=== PATIENT | female | born 1960 | race Two or more races ===

== ENCOUNTER 2025-09-13 18:20 | Emergency (ER) | payer OTHER, SELFPAY ==
[2025-09-13 18:50] VITALS: BP 146/80; PULSE 79; RESP 18; TEMP 36.6; O2SAT 100; BMI 23.6
--- NOTE | 2025-09-13 18:56 | ED_ITS ---
HPI - General Adult General Chief complaint: Wound/Laceration Stated complaint: cut in finger, bleeding Time Seen by Provider: 09/13/25 23:22 History of Present Illness ED Provider: Thor OLIVA narrative: The patient is a 65-year-old female who cut the tip of her 3rd finger with a knife while cooking in her kitchen. There was bleeding and she came to the emergency room. No other injuries. She says that she has a tetanus shot earlier this month. Related Data Allergies Allergy/AdvReac Type Severity Reaction Status Date / Time No Known Allergies Allergy Verified 09/13/25 18:52 Review of Systems Review of Systems: Yes all other systems are reviewed and are negative PMFSH Social History Social History Smoked in Last 30 Days: No Use of substances other than those prescribed or required for medical reasons: No Advance Directives: No Advance Directives Information Provided: Yes Do you have a plan to hurt others: No Plan Physical Exam ED Vital Signs: Vital Signs - 24 hr 09/13/25 18:50 09/13/25 23:23 09/14/25 01:21 Temperature 98 F 97.7 F 97.8 F Pulse Rate 79 86 71 Respiratory Rate 18 16 16 Blood Pressure 146/80 H 148/80 H 148/85 H Pulse Oximetry 100 99 98 Oxygen Delivery Method Room Air Room Air BMI result Body Mass Index 23.6 Const Other: The patient is a very small, thin 65-year-old woman who was awake and alert and seems very anxious. Orientation/consciousness: patient oriented x3 HENMT Other: The face is symmetrical. ?Mucous membranes moist. Eyes General: appearance normal, both eyes and all related structures Neck Neck: Yes normal visual inspection and Yes full ROM Resp Effort & Inspection: normal respiratory effort Skin Other: The patient has a laceration to the tip of the left index finger. The laceration is on the pad of the finger and does not involve the fingernail. The laceration is a flap like laceration which is essentially very close to having been an avulsion injury. There is a small base of the flap. The base is proximal to the flap. There was not much thickness to the flap. The flap is essentially 3/4 of a [place]. The total length of the skin laceration is about 2.5 cm. Neuro General: patient oriented x3, gait normal, tone normal, moves all extremities and CN's II-XI intact bilaterally Extrem Other: There is a flap-like laceration to the skin of the left middle finger at the pad of the finger. The fingernail is intact. No deformity. Normal function of the finger Course Course Course Narrative: RME; 65 yold female presents to the ED for left 2 and 3rd finger laceration that occurred at work in the kitchen. Patient middle finger laceration needs repair. Medications Administered Discontinued Medications Generic Name Dose Route Start Last Admin Trade Name Kip PRN Reason Stop Dose Admin Lidocaine HCl 10 ml 09/13/25 23:34 09/14/25 00:05 Lidocaine Hcl 1 % Mpf 5 Ml Vial INFILTRATI 09/13/25 23:35 10 ml ONCE ONE Administration Procedures Laceration Laceration 1: Site: hand (Tip of left middle finger) Side (If applicable): left Size (cm): 2.5 Description: flap Depth: simple, single layer Local Anesthetic: lidocaine 1% (Placed at the base of the finger under sterile conditions as a digital block) Amount of anesthesia used (mL): 6 Pre-repair: wound explored and irrigated extensively Skin layer closed with: nylon Size (cm): 5-0 Number of sutures: 6 Technique: simple, interrupted Medical Decision Making Medical Decision Making MDM Narrative: The patient has a flap-like laceration at the pad of the left index finger. She is up-to-date on tetanus. The patient was given a digital block. The wound was thoroughly irrigated and then closed with 6 simple interrupted stitches using nylon. The viability of the flap may be somewhat tenuous as the flap is very thin and the base is narrow compared to the size of the flap. Nevertheless it will function at least as a biological dressing. Wound care instructions were reviewed with the patient. She should get her stitches out in about 8-10 days. Discharge Plan Discharge Clinical Impression: Laceration of left middle finger Patient Disposition: Home, Self-Care Instructions: Laceration (ED) Additional Instructions: Keep the current dressing on the finger until Saturday. You may remove the dressing on Saturday and replace it with a Band-Aid. Keep the hand elevated to reduce swelling. You may apply a very small amount of antibiotic ointment to the wound with Band- Aid changes for 2 days. After 2 days you should stop the antibiotic ointment. Please call your regular doctor's office in the morning for an appointment next Saturday or Saturday for suture removal. The wound may get wet in the shower. Do not scrub or rub the stitches. Return to the emergency department if or other complication. Referrals: [facility] [Provider Group, Family Practice] Interventions: ED Discharge Assessment Last Done: 09/14/25 01:35 Discharge Date/Time: 09/14/25 01:36 Print Language: Azeri
[2025-09-13 23:23] VITALS: BP 148/80; PULSE 86; RESP 16; TEMP 36.5; O2SAT 99
--- OUTSIDE RECORDS SUMMARY | 2025-09-13 23:36 | XMS_ITS | Clinical Summary ---
Author Organization [facility] ity Address [address] [place] [address] Care Team Providers Care Scowman Name Role Phone Unavailable Primary Care Provider Unavailabl e Social History Tobacco Use Types Packs/Day Years Used Date Smoking Tobacco: Never Assessed Comments Unknown Sex and Gender Information Value Date Recorded Sex Assigned at Not on file Legal Sex Female 6:16 PM EST Gender Identity Not on file Sexual Orientation Not on file Plan of Treatment Health Maintenance Due Date Last Done Comments Breast Cancer Screening 1960 DTaP,Tdap,and Td Vaccines (1 - Tdap) 1978 Pneumococcal Vaccine: 50+ Ye ars (1 of 1 - PCV) 2009 Zoster Vaccines (1 of 2) 2009 Depression Screening 09/23/2024 COVID-19 Vaccine (1 - 2024-2 6 season) 2025 Influenza Vaccine (#1) 2025 RSV Immunization Adult Patie nts (1 - 1-dose 75+ series) 2034 HIB Vaccines Aged Out No longer eligi ble based on patient's age to complete this topic HPV Vaccines Aged Out No longer eligi ble based on patient's age to complete this topic Hepatitis A Vaccines Aged Out No long er eligible based on patient's age to complete this topic Hepatitis B Vaccines Aged Out No long er eligible based on patient's age to complete this topic IPV Vaccines Aged Out No longer eligi ble based on patient's age to complete this topic MMR Vaccines Aged Out No longer eligi ble based on patient's age to complete this topic Meningococcal ACWY Vaccine Aged Out N o longer eligible based on patient's age to complete this topic Meningococcal B Vaccine Aged Out No l onger eligible based on patient's age to complete this topic RSV Immunization Patients Un hesham 20 months Aged Out No longer eligible b ased on patient's age to complete this topic Varicella Vaccines Aged Out No longer eligible based on patient's age to complete this topic
[2025-09-14] MEDS: Lidocaine HCl 1 % MPF 5 ML VIAL 10 ML INFILTRATI (00:05)
[2025-09-14 01:21] VITALS: BP 148/85; PULSE 71; RESP 16; TEMP 36.6; O2SAT 98
[2025-09-14 01:35] VITALS: BP 148/85; PULSE 71; RESP 16; TEMP 36.6; O2SAT 98
== END 2025-09-14 01:36 | disposition home or self-care (01) ==
PROVIDERS: Emergency Provider Emergency Medicine
DX: S61.213A Laceration without foreign body of left middle finger without damage to nail, initial encounter (principal); M79.642 Pain in left hand; W26.9XXA Contact with unspecified sharp object(s), initial encounter; Y93.G3 Activity, cooking and baking; Y92.9 Unspecified place or not applicable; Y99.8 Other external cause status
CPT/HCPCS: 12001; 64450; 99284; J2003